=== PATIENT | male | born 2000 | race Caucasian/White ===

== ENCOUNTER 2023-08-30 04:08 | Day surgery (SDC) | payer OTHER ==
[2023-08-30] VITALS (229 sets, daily range): BP systolic 92–153; BP diastolic 34–96
[~2023-08-30] VITALS: Ht 185.4 cm; Wt 76.0 kg
[2023-08-30] MEDS ORDERED: ALBUTEROL SULFATE 2.5 MG VIAL IN PRN (07:30)
[2023-08-30] MEDS ORDERED: SCOPOLAMINE 1.5 MG DIS TD PRN (07:30)
[2023-08-30] MEDS ORDERED: CYANOCOBALAMIN 500 MCG/TAB ( B12) PO PRN (07:30)
[2023-08-30] MEDS ORDERED: diazePAM 5 MG/TAB PO PRN ×2 (07:30→08:30)
[2023-08-30] MEDS ORDERED: LACTATED RINGER'S 1,000 ML IV PRN ×3 (07:30→19:00)
[2023-08-30] MEDS ORDERED: PANTOPRAZOLE SODIUM Sesquihydr 40 MG/TAB PO PRN (07:30)
[2023-08-30] MEDS ORDERED: FAMOTIDINE 20 MG/TAB PO PRN (07:30)
[2023-08-30] MEDS ORDERED: cloNIDine HCL 0.1 MG/TAB PO PRN (07:30)
[2023-08-30] MEDS ORDERED: ASCORBIC ACID 4,000 MG in SODIUM CHLORIDE 0.9% 1,000 ML IV SCH (08:00)
[2023-08-30] MEDS ORDERED: ASCORBIC ACID 3,000 MG in SODIUM CHLORIDE 0.9% 1,000 ML IV SCH (08:00)
[2023-08-30 08:25] LABS: BASO% 0.5 % (0-3); EOS% 3.9 % (0-8); HEMATOCRIT 44.2 % (39.0-50.0); HEMOGLOBIN 15.1 g/dl (14.0-18.0); IMMATURE GRANULOCYTES 0.2 % (0.0-5.0); LYMPH% 39.5 % (15-41); MEAN CELL VOLUME 89.8 fL CALC (80.0-100.0); MEAN CORPUSCULAR HGB 30.7 pG CALC (26.0-32.0); MEAN CORPUSCULAR HGB CONC 34.2 g/dL CAL (32.0-36.0); MONO% 8.9 % (2-13); RED BLOOD COUNT 4.92 mill/uL (4.70-6.10); RED CELL DISTRI WIDTH 12.1 % (11.5-15.5)
[2023-08-30 10:06] LABS: ALBUMIN 5.1 g/dL (3.2-5.0); ALKALINE PHOSPHATASE 61 u/l (38-126); ANION GAP 13 (6-22 (CALC)); BILIRUBIN, TOTAL 0.5 mg/dL (0.2-1.3); BUN 11 mg/dL (9-20); BUN/CREATININE RATIO 12 (12-20 (CALC)); CARBON DIOXIDE 31 mmol/l (22-30); CHLORIDE 101 mmol/l (95-108); GFR FOR AFR.AMER. > 60 ML/MIN (>=60 (CALC)); GFR OTHER RACES > 60 ML/MIN (>=60 (CALC)); SGOT/AST 31 u/l (17-59); SODIUM 141 mmol/l (137-146)
[2023-08-30] MEDS ORDERED: ROCURONIUM BROMIDE 10 MG/ML 5ML VIAL IV PRN (10:40)
[2023-08-30] MEDS ORDERED: LIDOCAINE HCL 1% (10MG/ML) 100 MG/10 ML MDV VT PRN ×2 (10:40)
[2023-08-30] MEDS ORDERED: POTASSIUM CHLORIDE 20 MEQ/100 ML BAG IV PRN (10:40)
[2023-08-30] MEDS ORDERED: SUCCINYLCHOLINE CHLORIDE 20 MG/ML 10ML VIAL IV PRN (10:40)
[2023-08-30] MEDS ORDERED: ONDANSETRON HCl 4 MG/2 ML SDV IV PRN ×3 (10:40→19:00)
[2023-08-30] MEDS ORDERED: diazePAM 5 MG/TAB VT PRN (10:40)
[2023-08-30] MEDS ORDERED: DEXAMETHASONE SOD. PHOSPHATE 10 MG/ML VIAL IV PRN (10:40)
[2023-08-30] MEDS ORDERED: OCTREOTIDE ACETATE 100 MCG/VIAL SDV SC PRN (10:40)
[2023-08-30] MEDS ORDERED: STERILE WATER FOR IRRIGATION 1,000 ML BTL IR PRN (10:40)
[2023-08-30] MEDS ORDERED: PROPOFOL 100 ML IV PRN (10:40)
[2023-08-30] MEDS ORDERED: DiphenhydrAMINE HCL 50 MG/ML SDV IV PRN (10:40)
[2023-08-30] MEDS ORDERED: MAGNESIUM SULFATE HEPTAHYDRATE 100 ML IV PRN (10:40)
[2023-08-30] MEDS ORDERED: NALTREXONE HCL 50 MG/TAB VT PRN (10:40)
[2023-08-30] MEDS ORDERED: PROPOFOL 10 MG/ML 100ML VIAL IV PRN (10:40)
[2023-08-30] MEDS ORDERED: THIAMINE HCL 100 MG/ML 2ML VIAL IV PRN (10:40)
[2023-08-30] MEDS ORDERED: MIDAZOLAM HCL 2 MG/2 ML VIAL IV PRN (10:40)
[2023-08-30] MEDS ORDERED: cloNIDine HCL 0.1 MG/TAB VT PRN (10:40)
[2023-08-30] MEDS ORDERED: LIDOCAINE HCL 1% (10MG/ML) 100 MG/10 ML MDV IV PRN (10:40)
[2023-08-30] MEDS ORDERED: cloNIDine HYDROCHLORIDE 100 MCG/ML 10 ML INJ IV PRN (10:40)
[2023-08-30] MEDS ORDERED: NALTREXONE50 MG PO (15:19)
[2023-08-30] MEDS ORDERED: CLONIDINE0.1 MG PO (15:19)
[2023-08-30] MEDS ORDERED: KLONOPIN2 MG PO (15:20)
[2023-08-30] MEDS ORDERED: PATIENT' OWN MED 1 EA DOSE IV PRN (16:05)
[2023-08-30] MEDS ORDERED: diazePAM 10 MG/2 ML VIAL IV PRN (16:10)
[2023-08-30] MEDS ORDERED: PROMETHAZINE HCL 25 MG in SODIUM CHLORIDE 0.9% 50 ML IV PRN (19:00)
[2023-08-30] MEDS ORDERED: DEXAMETHASONE SODIUM PHOSPHATE PF 10 MG/ML SDV IV PRN (19:00)
[2023-08-30] MEDS ORDERED: KETOROLAC TROMETHAMINE 30 MG/ML SDV IV PRN (19:00)
[2023-08-30] MEDS ORDERED: PROMETHAZINE HCL 12.5 MG in SODIUM CHLORIDE 0.9% 50 ML IV PRN (19:00)
[2023-08-30] MEDS ORDERED: ACETAMINOPHEN 1,000 MG/100 ML VIAL IV PRN (19:00)
[2023-08-30] MEDS ORDERED: ACETAMINOPHEN 500 MG TAB PO PRN (19:00)
[2023-08-30] MEDS ORDERED: HALOPERIDOL LACTATE 5 MG/ML SDV IV PRN (19:00)
[2023-08-30] MEDS ORDERED: cloNIDine HCL 0.1 MG/TAB PO SCH (23:00)
[2023-08-30] MEDS ORDERED: clonazePAM 1 MG/TAB PO SCH (23:00)
[2023-08-31] MEDS ORDERED: cloNIDine HCL 0.1 MG/TAB PO PRN (04:00)
[2023-08-31] MEDS ORDERED: clonazePAM 1 MG/TAB PO PRN ×2 (04:00→08:00)
[2023-08-31 04:24] VITALS: BP 119/63
[2023-08-31 06:57] VITALS: BP 124/69
[2023-08-31 07:11] LABS: IMMATURE GRANULOCYTES 0.4 % (0.0-5.0); LYMPH% 4.1 % (15-41); MEAN CELL VOLUME 89.4 fL CALC (80.0-100.0); MEAN CORPUSCULAR HGB 30.8 pG CALC (26.0-32.0); MEAN CORPUSCULAR HGB CONC 34.5 g/dL CAL (32.0-36.0); MONO% 4.1 % (2-13); NEUT# 16.64 thou/uL (1.82-7.42); NEUT% 91.4 % (42-76); RED BLOOD COUNT 4.25 mill/uL (4.70-6.10); RED CELL DISTRI WIDTH 12.1 % (11.5-15.5)
[2023-08-31 07:20] LABS: HEMOGLOBIN 13.1 g/dl (14.0-18.0)
[2023-08-31 07:54] LABS: ALBUMIN 4.3 g/dL (3.2-5.0); ALKALINE PHOSPHATASE 56 u/l (38-126); BILIRUBIN, TOTAL 0.6 mg/dL (0.2-1.3); BUN 13 mg/dL (9-20); BUN/CREATININE RATIO 15 (12-20 (CALC)); CHLORIDE 109 mmol/l (95-108); CREATININE 0.9 mg/dL (0.7-1.3); GFR FOR AFR.AMER. > 60 ML/MIN (>=60 (CALC)); GFR OTHER RACES > 60 ML/MIN (>=60 (CALC)); MAGNESIUM 1.9 mg/dL (1.6-2.3); POTASSIUM 3.8 mmol/l (3.5-5.1); SGOT/AST 29 u/l (17-59); SODIUM 142 mmol/l (137-146); TOTAL PROTEIN 6.7 g/dL (6.3-8.2)
[2023-08-31 07:56] LABS: ANION GAP 13 (6-22 (CALC)); CARBON DIOXIDE 24 mmol/l (22-30)
[2023-08-31] MEDS ORDERED: cloNIDine HCL 0.1 MG/TAB PO SCH (08:00)
[2023-08-31] MEDS ORDERED: ACETAMINOPHEN 325 MG/TAB PO SCH (08:00)
[2023-08-31] MEDS ORDERED: NALTREXONE HCL 50 MG/TAB PO SCH (08:00)
[2023-08-31] MEDS ORDERED: PANTOPRAZOLE SODIUM Sesquihydr 40 MG/TAB PO SCH (08:00)
[2023-08-31 08:06] VITALS: BP 124/69
[2023-08-31] MEDS ORDERED: MAGNESIUM OXIDE 400 MG/TAB PO PRN (09:00)
[2023-08-31] MEDS ORDERED: ACETAMINOPHEN 500 MG TAB PO PRN (09:00)
[2023-08-31] MEDS ORDERED: POTASSIUM CHLORIDE 20 MEQ/TAB PO SCH (09:00)
[2023-08-31] MEDS ORDERED: Cholecalciferol 2,000 UNIT/TAB PO PRN (09:00)
== END 2023-08-31 16:32 | disposition home or self-care (01) | DRG 897 ==
LOC: MS2 04:08 → ANR 04:08 → EDSEX 04:08 → ANR 08:00
PROVIDERS: ATTEND Anesthesiology Critical Care Medicine
DX: F11.20 Opioid dependence, uncomplicated (principal)
CPT/HCPCS: J2354; J3475